=== PATIENT | female | born 1980 | race Caucasian/White ===

== ENCOUNTER 2020-10-23 12:31 | Emergency (ER) | payer OTHER | END 2020-10-23 15:02 | disposition home or self-care (01) | LOC: ERS 12:31 | DX: M54.5 Low back pain (principal); I10 Essential (primary) hypertension; F17.210 Nicotine dependence, cigarettes, uncomplicated; D64.9 Anemia, unspecified | CPT/HCPCS: 81003; 81025; 96372; 99283; J1885 ==